=== PATIENT | female | born 1950 | race Asian ===

== ENCOUNTER 2020-10-05 16:06 | Outpatient (CLI) | payer OTHER ==
[2020-10-05 17:34] LABS: PLATELET COUNT 170 K/uL (152-353)
[2020-10-05 18:01] LABS: POTASSIUM 4.4 mmol/L (3.6-5.2)
== END 2020-10-05 21:37 | disposition home or self-care (01) ==
LOC: LAB 16:06
PROVIDERS: ATTEND Nurse Practitioner Family
DX: I10 Essential (primary) hypertension (principal); E78.49 Other hyperlipidemia; E11.9 Type 2 diabetes mellitus without complications; M10.9 Gout, unspecified; F41.1 Generalized anxiety disorder; F32.9 Major depressive disorder, single episode, unspecified; E55.9 Vitamin D deficiency, unspecified; E53.8 Deficiency of other specified B group vitamins; Z79.899 Other long term (current) drug therapy; R53.83 Other fatigue; R53.81 Other malaise; E07.89 Other specified disorders of thyroid
CPT/HCPCS: 80053; 80061; 82306; 82607; 82728; 83036; 84439; 84443; 85027